=== PATIENT | female | born 1945 | race Caucasian/White ===

== ENCOUNTER → 2017-10-04 | Outpatient (CLI) | payer OTHER, MEDICARE | LOC: HYPER 06:41 | DX: L97.511 Non-pressure chronic ulcer of other part of right foot limited to breakdown of skin (principal); L98.0 Pyogenic granuloma; M06.80 Other specified rheumatoid arthritis, unspecified site; I10 Essential (primary) hypertension; Z87.891 Personal history of nicotine dependence ==

== ENCOUNTER → 2017-10-11 | Outpatient (CLI) | payer OTHER, MEDICARE | LOC: MRI 06:55 | DX: M79.671 Pain in right foot (principal); M79.89 Other specified soft tissue disorders ==

== ENCOUNTER → 2017-10-12 | Outpatient (CLI) | payer OTHER, MEDICARE | LOC: HYPER 07:04 | DX: L97.511 Non-pressure chronic ulcer of other part of right foot limited to breakdown of skin (principal); L98.0 Pyogenic granuloma; I10 Essential (primary) hypertension; M06.80 Other specified rheumatoid arthritis, unspecified site; M06.9 Rheumatoid arthritis, unspecified; Z96.653 Presence of artificial knee joint, bilateral; Z87.891 Personal history of nicotine dependence ==

== ENCOUNTER → 2017-10-19 | Outpatient (CLI) | payer OTHER, MEDICARE | LOC: HYPER 07:09 | DX: L97.511 Non-pressure chronic ulcer of other part of right foot limited to breakdown of skin (principal); L98.0 Pyogenic granuloma; M06.80 Other specified rheumatoid arthritis, unspecified site; I10 Essential (primary) hypertension; Z87.891 Personal history of nicotine dependence ==

== ENCOUNTER → 2017-11-02 | Outpatient (CLI) | payer OTHER, MEDICARE | LOC: HYPER 06:50 | DX: L97.512 Non-pressure chronic ulcer of other part of right foot with fat layer exposed (principal); L98.0 Pyogenic granuloma; I10 Essential (primary) hypertension; M06.80 Other specified rheumatoid arthritis, unspecified site; Z96.653 Presence of artificial knee joint, bilateral; Z87.891 Personal history of nicotine dependence ==

== ENCOUNTER → 2017-12-06 | Outpatient (CLI) | payer OTHER, MEDICARE | LOC: HYPER 11-18 16:25 | DX: L97.512 Non-pressure chronic ulcer of other part of right foot with fat layer exposed (principal); L98.0 Pyogenic granuloma; I10 Essential (primary) hypertension; M06.80 Other specified rheumatoid arthritis, unspecified site; Z96.653 Presence of artificial knee joint, bilateral; Z87.891 Personal history of nicotine dependence ==

== ENCOUNTER → 2017-12-19 | Outpatient (CLI) | payer OTHER, MEDICARE | LOC: HYPER 06:35 | DX: L97.512 Non-pressure chronic ulcer of other part of right foot with fat layer exposed (principal); L98.0 Pyogenic granuloma; I10 Essential (primary) hypertension; M06.80 Other specified rheumatoid arthritis, unspecified site; M06.9 Rheumatoid arthritis, unspecified; Z96.653 Presence of artificial knee joint, bilateral; Z87.891 Personal history of nicotine dependence ==

== ENCOUNTER → 2018-03-09 | Outpatient (CLI) | payer OTHER, MEDICARE | LOC: HYPER 07:03 | DX: L97.512 Non-pressure chronic ulcer of other part of right foot with fat layer exposed (principal); L98.0 Pyogenic granuloma; I10 Essential (primary) hypertension; K21.9 Gastro-esophageal reflux disease without esophagitis; M06.80 Other specified rheumatoid arthritis, unspecified site; Z87.891 Personal history of nicotine dependence ==

== ENCOUNTER → 2018-03-23 | Outpatient (CLI) | payer OTHER, MEDICARE | LOC: HYPER 07:04 | DX: L97.512 Non-pressure chronic ulcer of other part of right foot with fat layer exposed (principal); M06.80 Other specified rheumatoid arthritis, unspecified site; L98.0 Pyogenic granuloma; I10 Essential (primary) hypertension; K21.9 Gastro-esophageal reflux disease without esophagitis; Z87.891 Personal history of nicotine dependence; Z96.653 Presence of artificial knee joint, bilateral ==

== ENCOUNTER → 2018-04-26 | Outpatient (CLI) | payer OTHER, MEDICARE | LOC: HYPER 07:07 | DX: L97.512 Non-pressure chronic ulcer of other part of right foot with fat layer exposed (principal); L98.0 Pyogenic granuloma; I10 Essential (primary) hypertension; K21.9 Gastro-esophageal reflux disease without esophagitis; M06.80 Other specified rheumatoid arthritis, unspecified site; Z87.891 Personal history of nicotine dependence ==

== ENCOUNTER → 2018-05-03 | Outpatient (CLI) | payer OTHER, MEDICARE | LOC: HYPER 06:55 | DX: L97.512 Non-pressure chronic ulcer of other part of right foot with fat layer exposed (principal); I10 Essential (primary) hypertension; L98.0 Pyogenic granuloma; M06.80 Other specified rheumatoid arthritis, unspecified site; M06.9 Rheumatoid arthritis, unspecified; Z87.891 Personal history of nicotine dependence ==

== ENCOUNTER → 2018-05-17 | Outpatient (CLI) | payer OTHER, MEDICARE | LOC: HYPER 07:31 | DX: L97.512 Non-pressure chronic ulcer of other part of right foot with fat layer exposed (principal); L98.0 Pyogenic granuloma; I10 Essential (primary) hypertension; K21.9 Gastro-esophageal reflux disease without esophagitis; M06.80 Other specified rheumatoid arthritis, unspecified site; Z87.891 Personal history of nicotine dependence; Z96.653 Presence of artificial knee joint, bilateral ==

== ENCOUNTER → 2018-11-02 | Outpatient (CLI) | payer OTHER, MEDICARE | LOC: HYPER 06-07 06:59 | DX: L97.512 Non-pressure chronic ulcer of other part of right foot with fat layer exposed (principal); L98.0 Pyogenic granuloma; I10 Essential (primary) hypertension; K21.9 Gastro-esophageal reflux disease without esophagitis; R60.0 Localized edema; M06.80 Other specified rheumatoid arthritis, unspecified site; Z96.653 Presence of artificial knee joint, bilateral; Z87.891 Personal history of nicotine dependence ==

== ENCOUNTER → 2018-11-09 | Outpatient (CLI) | payer OTHER, MEDICARE | LOC: HYPER 06:46 | DX: L97.512 Non-pressure chronic ulcer of other part of right foot with fat layer exposed (principal); L98.0 Pyogenic granuloma; I10 Essential (primary) hypertension; R60.0 Localized edema; M06.80 Other specified rheumatoid arthritis, unspecified site; M06.9 Rheumatoid arthritis, unspecified; D64.9 Anemia, unspecified; Z87.891 Personal history of nicotine dependence ==

== ENCOUNTER → 2018-11-27 | Outpatient (CLI) | payer OTHER, MEDICARE | LOC: HYPER 06:31 | DX: L97.512 Non-pressure chronic ulcer of other part of right foot with fat layer exposed (principal); L98.0 Pyogenic granuloma; I10 Essential (primary) hypertension; M06.80 Other specified rheumatoid arthritis, unspecified site; M06.9 Rheumatoid arthritis, unspecified; R60.0 Localized edema; Z87.891 Personal history of nicotine dependence ==

== ENCOUNTER → 2018-12-04 | Outpatient (CLI) | payer OTHER, MEDICARE | LOC: HYPER 06:25 | DX: L97.512 Non-pressure chronic ulcer of other part of right foot with fat layer exposed (principal); L98.0 Pyogenic granuloma; I10 Essential (primary) hypertension; L88 Pyoderma gangrenosum; R60.0 Localized edema; M06.80 Other specified rheumatoid arthritis, unspecified site; M06.9 Rheumatoid arthritis, unspecified; Z87.891 Personal history of nicotine dependence ==

== ENCOUNTER → 2018-12-11 | Outpatient (CLI) | payer OTHER, MEDICARE | LOC: HYPER 07:45 | DX: L97.512 Non-pressure chronic ulcer of other part of right foot with fat layer exposed (principal); L98.0 Pyogenic granuloma; I10 Essential (primary) hypertension; R60.0 Localized edema; M06.80 Other specified rheumatoid arthritis, unspecified site; Z87.891 Personal history of nicotine dependence ==

== ENCOUNTER → 2018-12-19 | Outpatient (CLI) | payer OTHER, MEDICARE | LOC: HYPER 06:45 | DX: L97.512 Non-pressure chronic ulcer of other part of right foot with fat layer exposed (principal); L98.0 Pyogenic granuloma; I10 Essential (primary) hypertension; M06.80 Other specified rheumatoid arthritis, unspecified site; R60.0 Localized edema; Z87.891 Personal history of nicotine dependence ==

== ENCOUNTER → 2018-12-27 | Outpatient (CLI) | payer OTHER, MEDICARE | LOC: HYPER 07:04 | DX: L97.512 Non-pressure chronic ulcer of other part of right foot with fat layer exposed (principal); L98.0 Pyogenic granuloma; R60.0 Localized edema; I10 Essential (primary) hypertension; M06.80 Other specified rheumatoid arthritis, unspecified site; K21.9 Gastro-esophageal reflux disease without esophagitis; Z87.891 Personal history of nicotine dependence ==

== ENCOUNTER → 2019-06-21 | Outpatient (CLI) | payer OTHER, MEDICARE | LOC: HYPER 12:19 | DX: L97.512 Non-pressure chronic ulcer of other part of right foot with fat layer exposed (principal); L98.0 Pyogenic granuloma; M06.80 Other specified rheumatoid arthritis, unspecified site; I10 Essential (primary) hypertension; Z87.891 Personal history of nicotine dependence ==

== ENCOUNTER → 2019-06-28 | Outpatient (CLI) | payer OTHER, MEDICARE | LOC: HYPER 13:48 | DX: L97.512 Non-pressure chronic ulcer of other part of right foot with fat layer exposed (principal); L98.0 Pyogenic granuloma; M06.80 Other specified rheumatoid arthritis, unspecified site; I10 Essential (primary) hypertension; Z87.891 Personal history of nicotine dependence ==

== ENCOUNTER → 2019-07-12 | Outpatient (CLI) | payer OTHER, MEDICARE | LOC: HYPER 13:40 | DX: L97.512 Non-pressure chronic ulcer of other part of right foot with fat layer exposed (principal); L98.0 Pyogenic granuloma; M06.80 Other specified rheumatoid arthritis, unspecified site; I10 Essential (primary) hypertension; Z96.653 Presence of artificial knee joint, bilateral; Z87.891 Personal history of nicotine dependence ==

== ENCOUNTER → 2019-07-26 | Outpatient (CLI) | payer OTHER, MEDICARE | LOC: HYPER 13:23 | DX: L97.512 Non-pressure chronic ulcer of other part of right foot with fat layer exposed (principal); L98.0 Pyogenic granuloma; M06.80 Other specified rheumatoid arthritis, unspecified site; I10 Essential (primary) hypertension; Z96.653 Presence of artificial knee joint, bilateral; Z87.891 Personal history of nicotine dependence ==

== ENCOUNTER → 2019-08-23 | Outpatient (CLI) | payer OTHER, MEDICARE | LOC: HYPER 09:33 | DX: L97.512 Non-pressure chronic ulcer of other part of right foot with fat layer exposed (principal); L98.0 Pyogenic granuloma; I10 Essential (primary) hypertension; K21.9 Gastro-esophageal reflux disease without esophagitis; M06.80 Other specified rheumatoid arthritis, unspecified site; Z87.891 Personal history of nicotine dependence ==

== ENCOUNTER → 2019-09-06 | Outpatient (CLI) | payer OTHER, MEDICARE | LOC: HYPER 10:32 | DX: L97.512 Non-pressure chronic ulcer of other part of right foot with fat layer exposed (principal); L98.0 Pyogenic granuloma; M06.80 Other specified rheumatoid arthritis, unspecified site; M06.9 Rheumatoid arthritis, unspecified; I10 Essential (primary) hypertension; K21.9 Gastro-esophageal reflux disease without esophagitis; Z87.891 Personal history of nicotine dependence ==

== ENCOUNTER → 2019-09-20 | Outpatient (CLI) | payer OTHER, MEDICARE | LOC: HYPER 10:00 | DX: L97.512 Non-pressure chronic ulcer of other part of right foot with fat layer exposed (principal); L98.0 Pyogenic granuloma; I10 Essential (primary) hypertension; K21.9 Gastro-esophageal reflux disease without esophagitis; M06.80 Other specified rheumatoid arthritis, unspecified site; M06.9 Rheumatoid arthritis, unspecified; Z87.891 Personal history of nicotine dependence ==

== ENCOUNTER → 2019-10-04 | Outpatient (CLI) | payer OTHER, MEDICARE | LOC: HYPER 08:36 | DX: L97.512 Non-pressure chronic ulcer of other part of right foot with fat layer exposed (principal); L98.0 Pyogenic granuloma; I10 Essential (primary) hypertension; M06.80 Other specified rheumatoid arthritis, unspecified site; Z87.891 Personal history of nicotine dependence ==

== ENCOUNTER → 2019-10-25 | Outpatient (CLI) | payer OTHER, MEDICARE | LOC: HYPER 07:30 | PROVIDERS: ATTEND Emergency Medicine | DX: L97.512 Non-pressure chronic ulcer of other part of right foot with fat layer exposed (principal); S51.811D Laceration without foreign body of right forearm, subsequent encounter; L98.0 Pyogenic granuloma; I10 Essential (primary) hypertension; K21.9 Gastro-esophageal reflux disease without esophagitis; M06.80 Other specified rheumatoid arthritis, unspecified site; Z87.891 Personal history of nicotine dependence; X58.XXXD Exposure to other specified factors, subsequent encounter ==

== ENCOUNTER → 2019-11-08 | Outpatient (CLI) | payer OTHER, MEDICARE | LOC: HYPER 09:57 | PROVIDERS: ATTEND Emergency Medicine | DX: L97.512 Non-pressure chronic ulcer of other part of right foot with fat layer exposed (principal); S51.811D Laceration without foreign body of right forearm, subsequent encounter; L98.0 Pyogenic granuloma; I10 Essential (primary) hypertension; M06.80 Other specified rheumatoid arthritis, unspecified site; K21.9 Gastro-esophageal reflux disease without esophagitis; Z87.891 Personal history of nicotine dependence; X58.XXXD Exposure to other specified factors, subsequent encounter ==